=== PATIENT | male | born 1945 | race Caucasian/White ===

== ENCOUNTER 2021-06-15 07:06 | Day surgery (SDC) | payer OTHER ==
[2021-06-14 11:27] LABS: COVID AG,FIA SOURCE NASOPHARYNGEAL
[2021-06-14 11:30] LABS: BASOPHILS % (AUTO) 0.9 % (0.0-2.0); EOSINOPHILS % (AUTO) 5.6 % (1.0-6.0); HEMATOCRIT 48.3 % (41-53); HEMOGLOBIN 16.3 g/dL (13.5-17.5); LYMPHOCYTES # (AUTO) 1.2 K/uL (1.0-4.8); LYMPHOCYTES % (AUTO) 31.3 % (22.0-44.0); MEAN CORPUSCULAR HEMOGLOBIN 29.2 pg (26.0-34.0); MEAN CORPUSCULAR HGB CONC 33.7 G/dL (31.0-37.0); MEAN CORPUSCULAR VOLUME 87 fL (80-100); MONOCYTES # (AUTO) 0.5 K/uL (0.1-1.0); MONOCYTES % (AUTO) 11.9 % (2.0-9.0); NEUTROPHILS % (AUTO) 50.3 % (40.0-70.0); PLATELET COUNT (AUTO) 280 K/uL (150-450); RED BLOOD CELL COUNT(AUTO) 5.57 MIL/uL (4.50-5.90); RED CELL DISTRIBUTION WIDTH 14.8 % (11.5-14.5)
[2021-06-14 11:40] LABS: CALCIUM, TOTAL 9.4 mg/dL (8.8-10.5); CREATININE 1.27 mg/dL (0.60-1.30); POTASSIUM 4.3 mmol/L (3.5-5.1)
[2021-06-14 11:43] LABS: PROTHROMBIN TIME 11.1 SEC (9.4-11.6)
[2021-06-14 11:45] LABS: ALBUMIN 3.7 g/dL (3.4-5.0); BILIRUBIN,TOTAL 0.6 mg/dL (0.1-1.0); TOTAL PROTEIN, SERUM 8.3 g/dL (6.4-8.2)
[~2021-06-15] VITALS: Ht 175.3 cm; Wt 86.8 kg
[~2021-06-15 07:06] MED LIST: SODIUM CHLORIDE 0.9% 1,000 ML IV ONE
[2021-06-15] MEDS ORDERED: SODIUM CHLORIDE 0.9% 1,000 ML ONE (07:11)
[2021-06-15] MEDS ORDERED: DiphenhydrAMINE HCL 50 MG CAPSULE ONE (07:47)
[2021-06-15] MEDS ORDERED: DIAZEPAM 5 MG TABLET ONE (07:47)
[2021-06-15] MEDS ORDERED: ASPIRIN 81 MG CHEWABLE TABLET ONE (07:51)
[2021-06-15] MEDS ORDERED: ROSU20TA73 PO (08:05)
[2021-06-15] MEDS ORDERED: OMEP20 PO (08:05)
[2021-06-15] MEDS ORDERED: METO-558 PO (08:05)
[2021-06-15] MEDS ORDERED: OMEG10005 PO (08:05)
[2021-06-15] MEDS ORDERED: TICA90TA PO (08:05)
[2021-06-15] MEDS ORDERED: NITR0.4T52 SL (08:05)
[2021-06-15] MEDS ORDERED: ASPI-1450 PO (08:05)
[2021-06-15 08:36] LABS: GLUCOMETER DEV NAME(LOC) SDS.; GLUCOSE,POINT OF CARE 103 MG/DL (70-110)
[2021-06-15] MEDS ORDERED: ASPIRIN 81 MG CHEWABLE TABLET PO ONE (09:00)
[2021-06-15] MEDS ORDERED: DIAZEPAM 5 MG TABLET PO ONE (09:00)
[2021-06-15] MEDS ORDERED: DiphenhydrAMINE HCL 50 MG CAPSULE PO ONE (09:00)
[2021-06-15] MEDS ORDERED: SODIUM BICARBONATE 50 MEQ/50 ML VIAL ONE (09:27)
[2021-06-15] MEDS ORDERED: IOHEXOL 300 MG/ML 100 ML VIAL ONE (09:27)
[2021-06-15] MEDS ORDERED: HEPARIN SODIUM 1000 UNITS/NS 1,000 ML ONE (09:27)
[2021-06-15] MEDS ORDERED: IOHEXOL 300 MG/ML 150 ML VIAL ONE (09:27)
[2021-06-15] MEDS ORDERED: LIDOCAINE/PF 1% 30 ML VIAL ONE (09:27)
[2021-06-15] MEDS ORDERED: IOHEXOL 300 MG/ML 50 ML VIAL ONE ×2 (09:27→10:31)
[2021-06-15] MEDS ORDERED: MIDAZOLAM HCL 2 MG/2 ML VIAL ONE ×2 (09:47→10:22)
[2021-06-15] MEDS ORDERED: FentaNYL CITRATE PF 100 MCG/2 ML VIAL ONE ×2 (09:47→10:21)
[2021-06-15 09:50] VITALS: BP 140/83
[2021-06-15] MEDS ORDERED: LIDOCAINE 1% 30 ML/SOD BICARB 8.4% 4 ML SQ ONE (10:30)
[2021-06-15] MEDS ORDERED: IOHEXOL 300 MG/ML 150 ML VIAL IARTER ONE (10:30)
[2021-06-15] MEDS ORDERED: HEPARIN SODIUM 1000 UNITS/NS 1,000 ML IARTER ONE (10:30)
[2021-06-15] MEDS ORDERED: FentaNYL CITRATE PF 100 MCG/2 ML VIAL IVP ONE ×3 (10:30)
[2021-06-15] MEDS ORDERED: MIDAZOLAM HCL 2 MG/2 ML VIAL IVP ONE ×3 (10:30)
[2021-06-15] MEDS ORDERED: HEPARIN SODIUM,PORCINE 5,000 UNITS/ML VIAL IVP ONE (10:30)
[2021-06-15] MEDS ORDERED: TICAGRELOR 90 MG TABLET ONE (10:31)
[2021-06-15] MEDS ORDERED: TICAGRELOR 90 MG TABLET PO ONE ×2 (10:45→16:00)
[2021-06-15 10:57] VITALS: BP 97/62
== END 2021-06-15 16:10 | disposition home or self-care (01) ==
LOC: CATHLAB 07:06
PROVIDERS: ATTEND Internal Medicine Interventional Cardiology
DX: I25.110 Atherosclerotic heart disease of native coronary artery with unstable angina pectoris (principal); T82.855A Stenosis of coronary artery stent, initial encounter; E78.5 Hyperlipidemia, unspecified; I10 Essential (primary) hypertension; E11.9 Type 2 diabetes mellitus without complications; Y83.8 Other surgical procedures as the cause of abnormal reaction of the patient, or of later complication, without mention of misadventure at the time of the procedure; Z79.899 Other long term (current) drug therapy; Z98.890 Other specified postprocedural states; Z88.1 Allergy status to other antibiotic agents; I25.2 Old myocardial infarction
CPT/HCPCS: 36415; 80053; 82962; 85025; 85610; 85730; 87426; 92978; 93005; 93458; 99152; 99153; C1753; C1757; C1760; C1874; C1887; C9600; C9803; J1644; J2250; J3010; J3490 ×2; J7030; Q9967 ×2; 75960; 92920; 92928

== ENCOUNTER 2022-06-21 05:27 | Inpatient (IN) | payer OTHER, MEDICARE ==
[~2022-06-21] VITALS: Ht 175.3 cm; Wt 82.4 kg
[~2022-06-21 05:27] MED LIST changes: +ASPI-1450 PO; +METO-558 PO; +NITR0.4T52 SL; +OMEG10005 PO; +OMEP20 PO; +ROSU20TA73 PO; -SODIUM CHLORIDE 0.9% 1,000 ML IV ONE; +TICA90TA PO
[2022-06-21] MEDS ORDERED: ASPIRIN 81 MG CHEWABLE TABLET PO ONE (05:45)
[2022-06-21] MEDS ORDERED: NITROGLYCERIN 0.4 MG SUBLINGUAL TABLET #25 SL ONE (05:45)
[2022-06-21 05:46] LABS: GLUCOMETER DEV NAME(LOC) ERT.5; GLUCOSE,POINT OF CARE 108 MG/DL (70-110)
[2022-06-21 05:52] LABS: BASOPHILS % (AUTO) 0.8 % (0.0-2.0); EOSINOPHILS % (AUTO) 4.5 % (1.0-6.0); HEMATOCRIT 47.5 % (41-53); HEMOGLOBIN 16.1 g/dL (13.5-17.5); LYMPHOCYTES # (AUTO) 2.3 K/uL (1.0-4.8); LYMPHOCYTES % (AUTO) 39.9 % (22.0-44.0); MEAN CORPUSCULAR HEMOGLOBIN 28.9 pg (26.0-34.0); MEAN CORPUSCULAR HGB CONC 33.9 G/dL (31.0-37.0); MEAN CORPUSCULAR VOLUME 85 fL (80-100); MONOCYTES # (AUTO) 0.6 K/uL (0.1-1.0); MONOCYTES % (AUTO) 11.1 % (2.0-9.0); NEUTROPHILS # (AUTO) 2.5 K/uL (1.8-7.7); NEUTROPHILS % (AUTO) 43.7 % (40.0-70.0); PLATELET COUNT (AUTO) 208 K/uL (150-450); RED BLOOD CELL COUNT(AUTO) 5.57 MIL/uL (4.50-5.90); RED CELL DISTRIBUTION WIDTH 15.4 % (11.5-14.5)
[2022-06-21] MEDS ORDERED: ASPIRIN 325 MG TABLET PO ONE (06:00)
[2022-06-21 06:08] LABS: CALCIUM, TOTAL 9.6 mg/dL (8.8-10.5); CREATININE 1.33 mg/dL (0.60-1.30); POTASSIUM 3.8 mmol/L (3.5-5.1)
[2022-06-21 06:14] LABS: ALBUMIN 3.8 g/dL (3.4-5.0); BILIRUBIN,TOTAL 0.7 mg/dL (0.1-1.0); TOTAL PROTEIN, SERUM 8.2 g/dL (6.4-8.2)
[2022-06-21] MEDS ORDERED: NITROGLYCERIN 2% (1 GM=INCH) OINTMENT PACKET TP ONE (07:45)
[2022-06-21] MEDS ORDERED: IOHEXOL 300 MG/ML 100 ML VIAL ONE (13:25)
[2022-06-21] MEDS ORDERED: HEPARIN SODIUM 1000 UNITS/NS 1,000 ML ONE (13:25)
[2022-06-21] MEDS ORDERED: SODIUM BICARBONATE 50 MEQ/50 ML VIAL ONE (13:25)
[2022-06-21] MEDS ORDERED: LIDOCAINE/PF 1% 30 ML VIAL ONE (13:25)
[2022-06-21] MEDS ORDERED: FentaNYL CITRATE PF 100 MCG/2 ML VIAL ONE ×2 (13:36→14:35)
[2022-06-21] MEDS ORDERED: MIDAZOLAM HCL 2 MG/2 ML VIAL ONE ×2 (13:36→14:35)
[2022-06-21 13:40] VITALS: BP 152/74
[2022-06-21] MEDS ORDERED: MIDAZOLAM HCL 2 MG/2 ML VIAL IVP ONE ×3 (13:45→15:00)
[2022-06-21] MEDS ORDERED: FentaNYL CITRATE PF 100 MCG/2 ML VIAL IVP ONE ×4 (13:45→15:00)
[2022-06-21] MEDS ORDERED: EMPA25TA3 PO (13:49)
[2022-06-21] MEDS ORDERED: ISOS30TA68 PO (13:49)
[2022-06-21] MEDS ORDERED: HEPARIN SODIUM,PORCINE 1,000 UNITS/ML 10 ML VIAL ONE (13:57)
[2022-06-21] MEDS ORDERED: LIDOCAINE 1% 30 ML/SOD BICARB 8.4% 4 ML SQ ONE (14:00)
[2022-06-21] MEDS ORDERED: HEPARIN SODIUM 2,000 UNITS in HEPARIN SODIUM 1000 UNITS/NS 1,000 ML IARTER ONE (14:00)
[2022-06-21] MEDS ORDERED: IOHEXOL 300 MG/ML 100 ML VIAL ICOR ONE (14:00)
[2022-06-21] MEDS ORDERED: HEPARIN SODIUM,PORCINE 1,000 UNITS/ML 10 ML VIAL IVP ONE (14:15)
[2022-06-21] MEDS ORDERED: NITROGLYCERIN 50 MG/D5% WATER 250 ML ONE (14:44)
[2022-06-21 14:47] VITALS: BP 109/63
[2022-06-21] MEDS ORDERED: TICAGRELOR 90 MG TABLET ONE (14:48)
[2022-06-21] MEDS ORDERED: TICAGRELOR 90 MG TABLET PO ONE (15:00)
[2022-06-21] MEDS ORDERED: ONDANSETRON HCL 4 MG/2 ML VIAL IVP PRN (15:30)
[2022-06-21] MEDS ORDERED: ZOLPIDEM TARTRATE 5 MG TABLET PO PRN (15:30)
[2022-06-21] MEDS ORDERED: HYDROCODONE/ACETAMINOPHEN 5-325 MG TABLET PO PRN (15:30)
[2022-06-21] MEDS ORDERED: ALBUTEROL SULFATE 2.5 MG/0.5 ML NEB SOLUTION NEB PRN (15:30)
[2022-06-21] MEDS ORDERED: IPRATROPIUM BROMIDE 0.5 MG/2.5 ML NEB SOLUTION NEB PRN (15:30)
[2022-06-21] MEDS ORDERED: BISACODYL 10 MG RECTAL RECTAL SUPPOSITORY PR PRN (15:30)
[2022-06-21] MEDS ORDERED: MORPHINE SULFATE 2 MG/ML SYRINGE IVP PRN (15:30)
[2022-06-21] MEDS ORDERED: ACETAMINOPHEN 325 MG TABLET PO PRN (15:30)
[2022-06-21] MEDS ORDERED: MAGNESIUM HYDROXIDE SUSPENSION 30 ML UDCUP PO PRN (15:30)
[2022-06-21 20:32] VITALS: BP 141/79
[2022-06-21] MEDS ORDERED: TICAGRELOR 90 MG TABLET PO SCH (21:00)
[2022-06-21] MEDS ORDERED: ROSUVASTATIN CALCIUM 20 MG TABLET PO SCH (22:00)
[2022-06-21] MEDS: TICAGRELOR 90 MG TABLET PO SCH (23:36)
[2022-06-22 00:13] VITALS: BP 115/72
[2022-06-22 05:07] VITALS: BP 114/71
[2022-06-22] MEDS: OMEGA-3/DHA/EPA/FISH OIL 1,000 MG CAPSULE PO SCH ×2 (07:44→07:52)
[2022-06-22] MEDS: TICAGRELOR 90 MG TABLET PO SCH (07:45)
[2022-06-22] MEDS ORDERED: ISOSORBIDE MONONITRATE 30 MG ER TABLET PO SCH (09:00)
[2022-06-22] MEDS ORDERED: METOPROLOL SUCCINATE 50 MG ER TABLET PO SCH (09:00)
[2022-06-22] MEDS ORDERED: ASPIRIN 81 MG CHEWABLE TABLET PO SCH (09:00)
[2022-06-22] MEDS ORDERED: EMPAGLIFLOZIN 25 MG TABLET PO SCH (09:00)
[2022-06-22] MEDS ORDERED: PANTOPRAZOLE SODIUM 40 MG DR TABLET PO SCH (09:00)
[2022-06-22] MEDS ORDERED: OMEPRAZOLE 20 MG CAPSULE PO SCH (09:00)
[2022-06-22 11:50] VITALS: BP 108/72
== END 2022-06-22 12:35 | disposition home or self-care (01) | DRG 247 ==
LOC: EMS 05:28 → AHU 11:46 → 5S 21:40
PROVIDERS: ADMIT Hospitalist; ATTEND Hospitalist
PROC: 4A023N7 Measurement of Cardiac Sampling and Pressure, Left Heart, Percutaneous Approach (ICD-10-PCS; principal; 2022-06-21)
PROC: 027135Z Dilation of Coronary Artery, Two Arteries with Two Drug-eluting Intraluminal Devices, Percutaneous Approach (ICD-10-PCS; 2022-06-21)
PROC: B211YZZ Fluoroscopy of Multiple Coronary Arteries using Other Contrast (ICD-10-PCS; 2022-06-21)
PROC: B215YZZ Fluoroscopy of Left Heart using Other Contrast (ICD-10-PCS; 2022-06-21)
PROC: B41FYZZ Fluoroscopy of Right Lower Extremity Arteries using Other Contrast (ICD-10-PCS; 2022-06-21)
PROC: B241ZZ3 Ultrasonography of Multiple Coronary Arteries, Intravascular (ICD-10-PCS; 2022-06-21)
DX: T82.855A Stenosis of coronary artery stent, initial encounter (principal); I25.110 Atherosclerotic heart disease of native coronary artery with unstable angina pectoris; E11.9 Type 2 diabetes mellitus without complications; E78.00 Pure hypercholesterolemia, unspecified; I10 Essential (primary) hypertension; Y83.1 Surgical operation with implant of artificial internal device as the cause of abnormal reaction of the patient, or of later complication, without mention of misadventure at the time of the procedure; Y92.89 Other specified places as the place of occurrence of the external cause; Z82.49 Family history of ischemic heart disease and other diseases of the circulatory system; Z83.3 Family history of diabetes mellitus; Z88.1 Allergy status to other antibiotic agents; Z79.899 Other long term (current) drug therapy; I25.2 Old myocardial infarction
CPT/HCPCS: 37236; 71045; 75960; 80053; 82962; 83690; 83880; 84484; 85025; 92920; 92921; 92928; 93005; 99285; J1644; J2250; J3010; J3490; Q9967; 36415-L1; 36415-TC